=== PATIENT | male | born 1970 | race Caucasian/White ===

== ENCOUNTER 2019-01-02 09:15 | Emergency (ER) | payer OTHER ==
[~2019-01-02] VITALS: Ht 172.7 cm; Wt 86.2 kg
[2019-01-02] MEDS ORDERED: CHANTIX0.5 MG PO (09:53)
[2019-01-02] MEDS ORDERED: NORCO 5-325 TA1 EACH PO (10:56)
== END 2019-01-02 11:10 | disposition home or self-care (01) ==
LOC: ED 09:15
DX: S89.91XA Unspecified injury of right lower leg, initial encounter (principal); W18.30XA Fall on same level, unspecified, initial encounter; F17.200 Nicotine dependence, unspecified, uncomplicated; Z88.8 Allergy status to other drugs, medicaments and biological substances; Z79.899 Other long term (current) drug therapy
CPT/HCPCS: 73590; 73610; 96374; 99283-25; J1170

== ENCOUNTER 2019-01-07 17:26 | Emergency (ER) | payer OTHER ==
[~2019-01-07] VITALS: Ht 172.7 cm; Wt 86.2 kg
[~2019-01-07 17:26] MED LIST: CHANTIX0.5 MG PO; NORCO 5-325 TA1 EACH PO
--- OUTSIDE RECORDS SUMMARY | 2019-01-07 17:28 | XMS ---
PreManage Notification: JENISE TORRES [employer] Senior Events No recent Security Events currently on file CRITERIA MET - [facility] - 2 Visits in 30 Days CARE PROVIDERS There are no care providers on record at this time. Malaika has no Care Guidelines for this patient. [facility]vel[facility] V[facility] COUNT (12 MO.) [facility] T[facility] NOTE: Visits indicate total known visits. ED/C VISIT TRACKING (12 MO.) [facility] [place] [facility] Emergency COMPLAINT: - RT LEG PAIN 01/02/2019 09:[address] [facility] [place] TYPE: Emergency COMPLAINT: - R LEG PAIN/INJURY DIAGNOSES: - Other [facility] (current) drug therapy - Fall on same level, unspecified, initial encounter - Unspecified injury of right lower leg, initial encounter - Allergy status to other drugs, medicaments and biological substances status - Nicotine dependence, unspecified, uncomplicated - Pain in right lower leg INPATIENT VISIT TRACKING (12 MO.) No inpatient visits to display in this time frame [email or web address]
[2019-01-07] MEDS ORDERED: PERCOCET 5-3251 EACH PO (18:37)
== END 2019-01-07 18:57 | disposition home or self-care (01) ==
LOC: ED 17:26
DX: S82.431D Displaced oblique fracture of shaft of right fibula, subsequent encounter for closed fracture with routine healing (principal); F17.200 Nicotine dependence, unspecified, uncomplicated; Z88.8 Allergy status to other drugs, medicaments and biological substances; Z79.899 Other long term (current) drug therapy
CPT/HCPCS: 73610; 99283

== ENCOUNTER 2019-01-19 11:38 | Day surgery (SDC) | payer OTHER ==
[~2019-01-19] VITALS: Ht 172.7 cm; Wt 86.2 kg
--- NOTE | ~2019-01-19 | OR ---
[facility] [address] [facility] [place], [place] [address] [place] DATE OF OPERATION: 01/19/2019 SURGEON: Emmanuel Holden MD PREOPERATIVE DIAGNOSIS: Right ankle fracture with syndesmosis widening. POSTOPERATIVE DIAGNOSES: Right ankle fracture with syndesmosis widening. PROCEDURES PERFORMED: 1. Open reduction and internal fixation, right lateral malleolus fracture. 2. Open reduction and internal fixation, right syndesmosis. HEAD KILN OPERATOR: Sarah Jonas PA-C. Sarah was present and critical for all portions of the procedure. ANESTHESIA: General. BLOOD LOSS: Minimal. TOURNIQUET TIME: 32 minutes. IMPLANTS: 3 x 130 FibuLock with 2 locking screws and a Syndesmosis TightRope. BRIEF HISTORY: Moshe is a 48-year-old gentleman with ankle fracture after slipping on the ice. He was a little bit delayed in getting to our office; however, we showed the x-rays to him, which showed widening of the syndesmosis and slight displacement of the fracture. Risks and benefits of operative versus nonoperative treatment were discussed, and he elected to proceed. PROCEDURE DESCRIPTION: Once consent was obtained, he was taken to the operating room. After adequate anesthesia, he was placed on operating room table. All downside pressure points were PATIENT NAME: JENISE TORRES OPERATIVE REPORT DATE OF : 68 REPORT #: [id number] PHYSICIAN: EMMANUEL HOLDEN MD PCP: NO PRIMARY CARE PHYSICIAN REPORT IS CONFIDENTIAL AND NOT TO BE RELEASED WITHOUT AUTHORIZATION [facility] [address] [place], [place] [address] Draft well-padded. Hip bump was placed and a well-padded proximal thigh tourniquet was placed. The leg was then prepped and draped in a standard sterile fashion and exsanguinated, and tourniquet inflated to 250 mmHg. The fibula was marked out using the image intensifier. A 1 cm incision was then made distal to the distal tip of the fibula. A blunt dissection was taken down to the tip of the bone. A guidewire was then advanced from the center of the tip of the malleolus into the center of the body of the fibula. This was overdrilled using the 6 mm drill. The guidewire was then placed with a long guidewire and the proximal fibula was reamed to 3.1 mm. This met into cortical fixation. The FibuLock was then advanced from the tip of the malleolus proximally across the fracture into the body of the fibula. It was taken until just proximal to the tip of the fibula. The two distal locking screws were then placed. The Syndesmosis Arthrex TightRope was placed through the gayatri and the button was flipped and tightened. Once this was completed, the suture ends were cut. Prior to this, we did clamp slightly across the distal tib-fib joint. There was good overlap in all planes on the x-ray and the TightRope was tightened as tight as it would go and the sutures were cut. Once this was completed, all wounds were copiously irrigated with antibiotic solution, closed with gely, dressed with Mepilex Ag dressing, ABD, and Cayetano wrap. He tolerated the procedure well. All sponge, needle, and instrument counts were correct. Emmanuel Holden MD BA/ZAYRA /[id number] Copies: ~ PATIENT NAME: JENISE TORRES OPERATIVE REPORT DATE OF : 68 REPORT #: [id number] PHYSICIAN: EMMANUEL HOLDEN MD PCP: NO PRIMARY CARE PHYSICIAN REPORT IS CONFIDENTIAL AND NOT TO BE RELEASED WITHOUT AUTHORIZATION
[~2019-01-19 11:38] MED LIST changes: +IBUPROFEN200 MG PO; +PERCOCET 5-3251 EACH PO
[2019-01-19] MEDS ORDERED: SENNA LAX8.6 MG PO (14:25)
[2019-01-19] MEDS ORDERED: OXYCODONE HCL5 MG PO (14:25)
--- NOTE | 2019-01-19 14:26 | NUR ---
01/19/19 1426 Earnestine Roberson 1424 PATIENT ARRIVES TO PACU ASLEEP, OPENS EYES WITH VERBAL STIMULI. FOLLOWS COMMANDS, OPENS MOUTH, ORAL AIRWAY REMOVED. RESP EVEN AND UNLABORED, MASK AT 15 LITERS, TURNED DOWN TO 6 LITERS ON ARRIVAL.
--- NOTE | 2019-01-19 15:46 | NUR ---
ICED WATER GIVEN. PATIENT REPORTS OUTSIDE OF ANKLE 06/17. INSIDE OF ANKLE /. PATIENT IS HOLDING HIS BREATH AND FACIAL GRIMMACING IS NOTED. FRIEND @ BS. CALL LIGHT W/IN REACH. CRACKERS GIVEN.
--- NOTE | 2019-01-19 17:14 | NUR ---
LE 1640: PATIENT UP TO BATHROOM WITH RN STANDBY. PATIENT USES CRUTCHES TO AMBULATE AND TOLERATES THAT WELL. PATIENT VOIDS. DISCHARGE INSTRUCTIONS ARE GIVEN IN PRESENCE OF FRIEND AND BOTH VERBALIZE UNDERSTANDING. PATIENT ASSISTED DRESSED BY THIS RN IN PRESENCE OF FRIEND. PATIENT TRANSFERS TO AND PERSONAL VEHICLE AND TOLERATES THAT WELL.
== END 2019-01-19 17:00 | disposition home or self-care (01) ==
LOC: OPS 11:38 → DS 11:38 → OPS 13:30
PROVIDERS: Specialist
PROC: 0QSK04Z Reposition Left Fibula with Internal Fixation Device, Open Approach (ICD-10-PCS; principal; 2019-01-19 13:30)
DX: S82.61XA Displaced fracture of lateral malleolus of right fibula, initial encounter for closed fracture (principal); F17.210 Nicotine dependence, cigarettes, uncomplicated; X58.XXXA Exposure to other specified factors, initial encounter; Y99.0 Civilian activity done for income or pay
CPT/HCPCS: 01480; 73600; C1713; J0690; J1100; J1170; J2250; J2405; J2704; J2795; J3010; J7120